=== PATIENT | male | born 1940 | race Caucasian/White ===

== ENCOUNTER 2020-11-15 11:48 | Emergency (ER) | payer MEDICARE, MEDICAID, SELFPAY ==
--- NOTE | ~2020-11-15 | CT_ITS ---
EXAMINATION: CT brain wo con INDICATION: Head injury COMPARISON: 01/25/2019 TECHNIQUE: Standard unenhanced head CT. The dose-length product (DLP) was 605.33 mGy-cm. The mA was a djusted according to patient size. Iterative reconstruction technique was employed. FINDINGS: There is no acute intraparenchymal hemorrhage. No evidence of mass lesion. No evidence of a cute infarction. There is severe periventricular and subcortical hypodensity probably related to smal l vessel ischemic disease. There is moderate prominence of the sulci and ventricles related to cerebr al atrophy. Intracranial calcified cerebral atherosclerosis is noted. There are no extra-axial collec tions. There is no mass effect or midline shift. Changes in the globes are likely from ocular lens mccarthy rgery. The visualized sinuses and mastoid air cells are well aerated. IMPRESSION: 1. No acute intracranial abnormality. 2. Age related findings. Reviewed, dictated and finalized at location A.
--- NOTE | ~2020-11-15 | CT_ITS ---
EXAMINATION: CT cervical spine wo con DATE: 11/15/2020 12:51 INDICATION: Head injury TECHNIQUE: Computed tomography (CT) of the cervical spine was performed without intravenous contrast. The dose-length product (DLP) was 309.08 mGy-cm. Automated exposure control and iterative reconstruc tion technique were employed. COMPARISON: None FINDINGS: There is no fracture. The vertebral body heights and alignment are normal. There is fusion of C2 and C3. There is severe loss of intervertebral disc space height at C4-5 and C6-7. The odontoid is intact. The prevertebral soft tissues are normal. Small degenerative osteophytes project from the anterior endplates of multiple vertebral bodies. There is mild emphysema of the visualized lung apic es. IMPRESSION: 1. Moderate cervical spondylosis without acute findings. Reviewed, dictated and finalized at location A.
--- NOTE | ~2020-11-15 | XR_ITS ---
EXAMINATION: XR chest 2V DATE: 11/15/2020 12:54 INDICATION: Chest pain after fall TECHNIQUE: AP and lateral views of the chest are obtained. COMPARISON: 01/27/2019 FINDINGS: The lungs are free of acute opacities. There is no pleural effusion or pneumothorax. The he art size is normal. There is moderate thoracic spondylosis. Median sternotomy wires are cardiac surge ry. There are healed left-sided rib fractures. Surgical clips in the right upper quadrant are likely from prior cholecystectomy. A chronic lumbar compression fracture is noted. IMPRESSION: 1. No acute cardiopulmonary abnormality. Reviewed, dictated and finalized at location A.
[2020-11-15 11:32] VITALS: BP 111/59; PULSE 85; RESP 18; TEMP 36.2; O2SAT 98
--- NOTE | 2020-11-15 12:34 | ECG_ITS ---
Measurements Intervals [place] Rate: 75 P: -6 OR: 181 QRS: -37 QRSD: 146 T: -23 QT: 416 QTc: 465 Interpretive Statements SINUS RHYTHM RIGHT BUNDLE BRANCH BLOCK BASELINE ARTIFACT- I, II, AVR, V1-V2, V4-V5 ABNORMAL ECG Electronically Signed On 11-15-2020 17:40:14 CDT by Heber Ramirez D.O.
--- NOTE | 2020-11-15 12:47 | ED.FALL ---
HPI - Fall General Chief Complaint: Fall Stated Complaint: fall, laceration Time Seen by Provider: 11/15/20 12:32 Source: EMS and RN notes reviewed History of Present Illness HPI Narrative: Patient presents after unwitnessed fall. Nurse states patient was trying to get out of his chair and struck the ground. Patient was referred to the ER for further evaluation. Patient does have baseline dementia. Related Data Home Medications Medication Instructions Recorded Confirmed Novolin 70/30 U-100 Insulin 28 unit SUBCUT HS 01/31/19 01/31/19 Novolin 70/30 U-100 Insulin 30 unit SUBCUT DAILY 01/31/19 01/31/19 bimatoprost 1 drp OPHTHALMIC (EYE) QPM 01/31/19 01/31/19 carbidopa-levodopa 1.5 tablet PO TID 01/31/19 01/31/19 divalproex 250 mg PO BID 01/31/19 01/31/19 donepezil 10 mg PO HS 01/31/19 01/31/19 glucagon HCl 1 mg IM ONCE PRN 01/31/19 01/31/19 guaifenesin 200 mg PO QID PRN 01/31/19 01/31/19 losartan 50 mg PO DAILY 01/31/19 01/31/19 memantine 10 mg PO BID 01/31/19 01/31/19 metformin 1,000 mg PO DAILY 01/31/19 01/31/19 simvastatin 80 mg PO HS 01/31/19 01/31/19 warfarin 1 mg PO QTUTHSU 01/31/19 01/31/19 warfarin 6 mg PO QTUTHSU 01/31/19 01/31/19 warfarin 8 mg PO QMWFSA 01/31/19 01/31/19 Allergies Allergy/AdvReac Type Severity Reaction Status Date / Time adhesive tape Allergy Mild Rash Verified 02/01/19 07:08 Review of Systems Review of Systems: ROS unobtainable: Yes unobtainable due to mental status PMFSH Past Medical History Medical History Chronic combined systolic and diastolic CHF (congestive heart failure) Dementia Dyslipidemia Parkinson disease Perirectal abscess (~01/24/19) Type 2 diabetes mellitus Urinary tract infection Exam Narrative: GENERAL: Well-appearing, well-nourished, and in no acute distress. HEAD: Normocephalic, atraumatic. EYES: PERRLA and EOMI. ENT: Nares clear, no rhinorrhea or epistaxis. Mucous membranes moist. NECK: Supple. No masses. No JVD CHEST: Diminished aeration no respiratory distress. No wheezes rales or rhonchi HEART: Regular rate and rhythm. No murmur heard. Normal peripheral pulses. ABDOMEN: Soft, nontender, nondistended, normal active bowel sounds. EXTREMITIES: Normal range of motion. No edema. Multiple various aged bruising no focal bony tenderness SKIN: Warm, dry, no rash. NEURO: 5 out of 5 strength in bilateral upper extremities sensation intact to light touch. Alert and oriented to self PSYCH: Normal mood and affect. Course Reevaluation(s) Reevaluation #1: Patient is resting comfortably Date: 11/15/20 Time: 15:34 Vital Signs Vital signs: Vital Signs Temperature 36.2 C L 11/15/20 11:32 Pulse Rate 85 11/15/20 11:32 Respiratory Rate 18 11/15/20 11:32 Blood Pressure 111/59 L 11/15/20 11:32 Pulse Oximetry 98 11/15/20 11:32 Temperature 36.2 C L 11/15/20 11:32 Pulse Rate 86 11/15/20 17:21 Respiratory Rate 16 11/15/20 17:21 Blood Pressure 113/57 L 11/15/20 17:21 Pulse Oximetry 100 11/15/20 17:21 MDM - Fall MDM Narrative Medical decision making narrative: H&P as above, vss, pt looks clinically well, exam without clear focal neurological deficit , labs with infected urine, img without acute process, additional labs/img considered, symptomatic relief available as needed, on reevaluation pt continues to looks clinically well. They are to be at his baseline mental status per nursing facility report. Remained clinically stable throughout his ER stay. Suspect isolated UTI, dns intracranial hemorrhage, fracture, major neurovascular compromise, severe sepsis, severe dehydration. plan to tx/monitor as op w/ pcm f/u findings/plan discussed with pt, pt agree/comfortable with plan, return precautions given Lab Data Result diagrams: 11/15/20 13:11 11/15/20 13:11 Labs: Lab Results 11/15/20 11/15/20 11/15/20 Range/Units 13:11 13:11 13:11 WBC 9.2 (4.5-10.0)
[2020-11-15] MEDS: SODIUM CHLORIDE 0.9% IV 500 ML 999 ML IV CONT (13:30)
[2020-11-15 13:32] LABS: Basophils Absolute Auto 0.1 K/mm3 (0.0-0.1); Basophils Percent Auto 0.5 % (0.2-1.2); Eosinophils Absolute Auto 0.2 K/mm3 (0-0.3); Eosinophils Percent Auto 2.6 % (0-4.4); Hematocrit 37.8 % (42.0-52.0); Hemoglobin 11.6 g/dL (14.0-18.0); Immature Granulocyte Absolute 0.04 K/mm3 (0.00-0.031); Immature Granulocyte Percent A 0.4 % (0-0.5); Lymphocytes Absolute Auto 2.47 K/mm3 (0.9-3.2); Mean Corpuscular HGB Conc 30.7 g/dl (32-36); Mean Corpuscular Hemoglobin 28.6 pg (26-34); Mean Corpuscular Volume 93.3 fl (80-100); Mean Platelet Volume 9.5 fl (7.4-10.4); Monocytes Absolute Auto 1.2 K/mm3 (0.1-0.6); Monocytes Percent Auto 13.1 % (2.6-8.5); Neutrophils Absolute Auto 5.2 K/mm3 (1.3-6.7); Neutrophils Percent Auto 56.4 % (45.5-73.1); Platelet Count Result 186 k/mm3 (150-375); Red Blood Count 4.05 M/mm3 (4.6-6.20); White Blood Count 9.2 K/mm3 (4.5-10.0)
[2020-11-15 13:42] LABS: Add Urine Microscopic? YES; Appearance Urine Turbid (Clear); Bacteria Urine Trace /hpf; Bilirubin Urine Negative (Negative); Blood Urine 3+ (Negative); Color Urine Yellow (Yellow); Glucose Urine UA Negative (Negative); Ketones Urine Negative (Negative); Leukocyte Esterase Ur 3+ LEU/UL (Negative); Nitrate Urine Negative (Negative); Protein Urine 2+ mg/dL (Negative); RBC Urine >75 /hpf (0-2); Specific Grav Ur 1.012 (1.001-1.035); Urobilinogen Urine Negative mg/dL (<2.0); WBC Urine >75 /hpf
[2020-11-15 13:42] LABS: Alanine Aminotransferase 9 U/L (4-50); Albumin Level 3.7 g/dL (3.5-5.1); Alkaline Phosphatase 64 U/L (38-126); Anion Gap 5 mmol/L (8-16); Aspartate Amino Transferase 24 U/L (17-59); Bilirubin,Total 0.5 mg/dL (0.2-1.3); Blood Urea Nitrogen 33 mg/dL (9-20); Calcium 8.8 mg/dL (8.4-10.2); Carbon Dioxide 29 mmol/L (22-30); Chloride 102 mmol/L (98-107); Estimated CRCL calculation 55 ml/min; Estimated Glomerular Filt Rate > 60; Glucose 86 mg/dL (65-110); Magnesium 1.9 mg/dL (1.6-2.3); Potassium 3.9 mmol/L (3.4-5.0); Sodium 136 mmol/L (137-145)
[2020-11-15 13:45] VITALS: BP 101/53; PULSE 85; RESP 16; O2SAT 100
[2020-11-15 13:48] LABS: Prothrombin Time 30.2 Seconds (11.1-14.7)
[2020-11-15 13:49] LABS: Partial Thromboplastin Time 54.6 SECONDS (22.3-36.8)
[2020-11-15 13:54] LABS: NT Pro B Type Natriuretic Pept 455 pg/mL (5-100); Troponin I < 0.012 ng/mL (0.000-0.034)
--- NOTE | 2020-11-15 16:45 | PC.NURSE ---
made contact with [facility] to transfer pt back to [facility] in [place]. company accepted with [facility] in route from [facility]
--- NOTE | 2020-11-15 16:45 | PC.NURSE ---
[facility] en route to transport pt back to [facility]
[2020-11-15 16:50] VITALS: BP 103/64; PULSE 82; RESP 16; O2SAT 100
[2020-11-15 17:21] VITALS: BP 113/57; PULSE 86; RESP 16; O2SAT 100
== END 2020-11-15 17:30 ==
PROVIDERS: Emergency Provider Emergency Medicine; PCP Family Medicine
DX: N39.0 Urinary tract infection, site not specified (principal); G20 Parkinson's disease; F02.80 Dementia in other diseases classified elsewhere, unspecified severity, without behavioral disturbance, psychotic disturbance, mood disturbance, and anxiety; E11.9 Type 2 diabetes mellitus without complications; I50.42 Chronic combined systolic (congestive) and diastolic (congestive) heart failure; Z79.01 Long term (current) use of anticoagulants; Z79.4 Long term (current) use of insulin; W07.XXXA Fall from chair, initial encounter
CPT/HCPCS: 36415; 70450; 71046; 72125; 80053; 81001; 83735; 83880; 84484; 85025; 85610; 85730; 87077; 87086; 87088; 93005; 96361; 96365; 99284; J0696; J7040

== ENCOUNTER 2021-07-20 09:15 | Emergency (ER) | payer OTHER, SELFPAY ==
[2021-07-20] VITALS (33 sets, daily range): BP systolic 42–85; BP diastolic 34–59; PULSE 182–197; RESP 15–43; TEMP 36.8; O2SAT 90–98
--- NOTE | 2021-07-20 09:30 | ECG_ITS ---
Measurements Intervals [place] Rate: 188 P: [place]: 0 QRS: -77 QRSD: 142 T: 106 QT: 281 QTc: 497 Interpretive Statements UNCERTAIN REGULAR WIDE COMPLEX TACHYCARDIA, PROBABLE VENTRICULAR TACHYCARDIA RIGHT BUNDLE BRANCH BLOCK [120+ ms QRS DURATION, UPRIGHT V1, 40+ ms S IN I/aVL/V4/V5/V6] ABNORMAL ECG COMPARED TO ECG 11/15/2020 13:55:08 PROBABLE VENTRICULAR TACHYCARDIA HAS REPLACED SINUS RHYTHM Electronically Signed On 07-21-2021 17:50:50 CDT by Elie Burch M.D.
--- NOTE | 2021-07-20 09:37 | PC.NURSE ---
Care coordination contacted for hospice placement.
--- NOTE | 2021-07-20 09:39 | ED.ARRPALP ---
HPI - Arrhythmia/Palpitations General Chief Complaint: Arrhythmia/Palpitations Stated Complaint: vtach, hypotensive Time Seen by Provider: 07/20/21 09:17 Source: family, EMS and old records reviewed History of Present Illness HPI narrative: Patient [facility] for [facility]. Patient is noted to not be doing well at his nursing facility EMS was called he was found to be in V. tach and hypotensive he was transferred to the ER for evaluation. Patient had a signed DNR comfort focused treatment no treatments were given in route. Patient is confused at baseline. Patient has had worsening lower extremity edema recently and there has been changes to his Lasix to help manage his symptoms Related Data Home Medications Medication Instructions Recorded Confirmed Novolin 70/30 U-100 Insulin 28 unit SUBCUT HS 01/31/19 01/31/19 Novolin 70/30 U-100 Insulin 30 unit SUBCUT DAILY 01/31/19 01/31/19 bimatoprost 1 drp OPHTHALMIC (EYE) QPM 01/31/19 01/31/19 carbidopa-levodopa 1.5 tablet PO TID 01/31/19 01/31/19 divalproex 250 mg PO BID 01/31/19 01/31/19 donepezil 10 mg PO HS 01/31/19 01/31/19 glucagon HCl 1 mg IM ONCE PRN 01/31/19 01/31/19 guaifenesin 200 mg PO QID PRN 01/31/19 01/31/19 losartan 50 mg PO DAILY 01/31/19 01/31/19 memantine 10 mg PO BID 01/31/19 01/31/19 metformin 1,000 mg PO DAILY 01/31/19 01/31/19 simvastatin 80 mg PO HS 01/31/19 01/31/19 warfarin 1 mg PO QTUTHSU 01/31/19 01/31/19 warfarin 6 mg PO QTUTHSU 01/31/19 01/31/19 warfarin 8 mg PO QMWFSA 01/31/19 01/31/19 Allergies Allergy/AdvReac Type Severity Reaction Status Date / Time adhesive tape Allergy Mild Rash Verified 07/20/21 09:31 Review of Systems Review of Systems: ROS unobtainable: Yes unobtainable due to medical condition PMFSH Past Medical History Medical History Chronic combined systolic and diastolic CHF (congestive heart failure) Dementia Dyslipidemia Parkinson disease Perirectal abscess (~01/24/19) Type 2 diabetes mellitus Urinary tract infection Social History Social History Spiritual care concerns: No Exam Narrative: GENERAL: Chronically ill in no acute distress HEAD: Normocephalic, atraumatic. EYES: PERRLA and EOMI. ENT: Nares clear, no rhinorrhea or epistaxis. Mucous membranes moist. NECK: Supple. No masses. CHEST: Clear to auscultation. No respiratory distress. No wheezes rales or rhonchi HEART: No murmur heard. Normal peripheral pulses. ABDOMEN: Soft, nontender, nondistended EXTREMITIES: Normal range of motion. No edema. SKIN: Warm, dry, no rash. NEURO: Mumbles in response to verbal stimuli PSYCH: Normal mood and affect. Course Consultations Consultation #1: Discussed patient's conditions with family as he has a signed DNR with comfort care focused treatment. Family is comfortable with how treatment for his V. tach such as defibrillation or amiodarone and comfortable with evaluation by hospice team. Family made aware that patient has a very dangerous and life-threatening heartbeat. I also discussed the patient's condition with his primary care doctor the comfort focused treatment is in line with discussions with the family. Case discussed with care coordination who will reach out to hospice for further assistance Date: 07/20/21 Time: 09:41 Consultation #2: Hospice is currently evaluating the patient. Date: 07/20/21 Time: 12:13 Vital Signs Vital signs: Vital Signs Temperature 36.8 C 07/20/21 09:14 Pulse Rate 190 H 07/20/21 09:14 Respiratory Rate 28 H 07/20/21 09:14 Blood Pressure 68/42 L 07/20/21 09:14 Pulse Oximetry 91 07/20/21 09:14 Temperature 36.8 C 07/20/21 09:14 Pulse Rate 182 H 07/20/21 14:56 Respiratory Rate 30 H 07/20/21 14:56 Blood Pressure 70/52 L 07/20/21 14:56 Pulse Oximetry 96 07/20/21 14:56 MDM - Arrhythmia/Palpitations MDM Narrative Medical decision adolfo
--- NOTE | 2021-07-20 13:26 | PCCCNOTE ---
met with patient bedside, patient is not alert nor oriented at this time. CC then met with May and niece Zenaida after discussion with MD, family wishes to proceed with inpatient hospice eval .CC sent referral to [facility] per family's request. Stephie with [facility] did bedside evaluation and patient meets GIP criteria. plan is to admit patient under [facility]. Family aware. CC will continue to follow for any needs that arise.
[2021-07-20 20:53] LABS: Glucose Point of Care 246 mg/dl (65-105)
== END 2021-07-20 15:08 | disposition hospice, inpatient (51) ==
PROVIDERS: Emergency Provider Emergency Medicine; PCP Family Medicine
DX: I47.2 Ventricular tachycardia (principal); I50.42 Chronic combined systolic (congestive) and diastolic (congestive) heart failure; E11.9 Type 2 diabetes mellitus without complications; G20 Parkinson's disease; F03.90 Unspecified dementia, unspecified severity, without behavioral disturbance, psychotic disturbance, mood disturbance, and anxiety; E78.5 Hyperlipidemia, unspecified; Z66 Do not resuscitate; Z87.440 Personal history of urinary (tract) infections; Z79.01 Long term (current) use of anticoagulants; Z79.4 Long term (current) use of insulin; Z79.84 Long term (current) use of oral hypoglycemic drugs; I45.10 Unspecified right bundle-branch block
CPT/HCPCS: 82948; 93005; 99285; A9270

== ENCOUNTER 2021-07-20 12:30 | HOS | payer OTHER, SELFPAY ==
--- NOTE | 2021-07-20 15:19 | PM.IMHP ---
H&P: HPI History of Present Illness Date/Time: 07/20/21 15:19 Chief Complaint: uncontrolled discomfort Narrative: 81 y/o resident of [facility] was found by staff to be responding differently. EMS was summoned and monitor revealed VT with rate up to 190s. As he was DNR, he was transported to ED w/o intervention. From there, hospice was summoned and due to his discomfort as manifested by moaning, he was admitted to the inpatient hospice service for symptom management. Report obtained telephonically from hospice nurse, Stephie. At baseline, he has PD with dementia and behaviors and is dependent for all ADLs and is incontinent. Review of Systems Review of Systems: ROS unobtainable: Yes unobtainable due to mental status PMFSH Past Medical History Medical History Chronic combined systolic and diastolic CHF (congestive heart failure) Dementia Dyslipidemia Parkinson disease Perirectal abscess (~01/24/19) Type 2 diabetes mellitus Urinary tract infection Social History Social History Spiritual care concerns: No Meds Home Medications and Allergies Home Medications Medication Instructions Recorded Confirmed Type Novolin 70/30 U-100 Insulin 28 unit SUBCUT HS 01/31/19 01/31/19 History Novolin 70/30 U-100 Insulin 30 unit SUBCUT DAILY 01/31/19 01/31/19 History bimatoprost 1 drp OPHTHALMIC (EYE) QPM 01/31/19 01/31/19 History carbidopa-levodopa 1.5 tablet PO TID 01/31/19 01/31/19 History divalproex 250 mg PO BID 01/31/19 01/31/19 History donepezil 10 mg PO HS 01/31/19 01/31/19 History glucagon HCl 1 mg IM ONCE PRN 01/31/19 01/31/19 History guaifenesin 200 mg PO QID PRN 01/31/19 01/31/19 History losartan 50 mg PO DAILY 01/31/19 01/31/19 History memantine 10 mg PO BID 01/31/19 01/31/19 History metformin 1,000 mg PO DAILY 01/31/19 01/31/19 History simvastatin 80 mg PO HS 01/31/19 01/31/19 History warfarin 1 mg PO QTUTHSU 01/31/19 01/31/19 History warfarin 6 mg PO QTUTHSU 01/31/19 01/31/19 History warfarin 8 mg PO QMWFSA 01/31/19 01/31/19 History furosemide 20 mg PO DAILY 30 Days #30 tablet 02/01/19 Rx metoprolol tartrate 25 mg PO Q12HR 30 Days #60 tablet 02/01/19 Rx miconazole nitrate [Aloe [place] 1 applic TOPICAL Q12HR 30 Days #1 02/01/19 Rx Antifungal (micon)] gm silver [Silver-Sept] 1 applic TOPICAL Q12HR 30 Days #1 02/01/19 Rx gm cephalexin 500 mg PO Q12H 5 Days #10 cap 11/15/20 Rx lorazepam 0.5 mg tablet 0.5 mg PO TID #90 tablet 05/11/21 Rx Allergies Allergy/AdvReac Type Severity Reaction Status Date / Time adhesive tape Allergy Mild Rash Verified 07/20/21 09:31 Exam Narrative: Frail, elderly gentelman who is tachycardic and moaning. Assessment and Plan Assessment and plan (1) Palliative care by specialist: Code(s): Z51.5 - Encounter for palliative care Status: Acute Assessment and Plan: Qualifies for inpatient hospice due to uncontrolled discomfort requiring continuous iv morphine for control Palliative regimen as ordered (2) Ventricular tachycardia: Code(s): I47.2 - Ventricular tachycardia Status: Acute (3) Dementia with behavioral disturbance: Code(s): F03.91 - Unspecified dementia with behavioral disturbance Status: Acute (4) Type 2 diabetes mellitus: Code(s): E11.9 - Type 2 diabetes mellitus without complications Status: Chronic (5) Parkinson disease: Code(s): G20 - Parkinson's disease Status: Chronic (6) Chronic combined systolic and diastolic CHF (congestive heart failure): Code(s): I50.42 - Chronic combined systolic (congestive) and diastolic (congestive) heart failure Status: Chronic Quality If No VTE Prophylaxis Answer both mechanical and pharmacologic: Reason no mechanical VTE proph: medical contraindication (comfort care only)
--- NOTE | 2021-07-20 15:19 | ADMGEN ---
This patient, Morales Corbett, was admitted to [facility] Surg Room 318-01 at 1510. Patient/family oriented to hospital policies and general routines including ID bracelet, bed and alarms, visiting hours, pain management, procedures, bathroom and other care routines, personal items, smoking policy, room service/diet, and visiting hours. Information on how to activate the Rapid Response Team has been discussed. Patient/Family are encouraged to report perceived risks to care and to ask questions if they do not understand what they are told or what they should do.
[2021-07-20] MEDS: MORPHINE SULFATE INJ (*CRX) 50 MG in SODIUM CHLORIDE 0.9% IV 95 ML IV CONT (18:20)
[2021-07-20 20:00] VITALS: PULSE 55; RESP 22; O2SAT 98
[2021-07-20 20:29] VITALS: BP 70/51; PULSE 55; RESP 22; TEMP 36.6; O2SAT 98
[2021-07-21 08:00] VITALS: BP 88/45; PULSE 82; RESP 16; TEMP 36.2; O2SAT 94
[2021-07-21] MEDS: GLYCOPYRROLATE INJ (*SP) 0.2 MG/ML VIAL 0.1 MG IV PUSH ×2 (17:13→21:41)
[2021-07-21] MEDS: MORPHINE SULFATE INJ (*CRX) 50 MG in SODIUM CHLORIDE 0.9% IV 95 ML IV CONT (17:16)
[2021-07-21] MEDS: LORazepam INJ (*CRX) 2 MG/ML VIAL 1 MG IV PUSH (21:41)
[2021-07-21 21:48] VITALS: BP 87/65; PULSE 105; RESP 18; TEMP 37.1; O2SAT 70
--- NOTE | 2021-07-22 03:58 | PC.NURSE ---
May notified of .
--- NOTE | 2021-07-22 15:58 | P.DN_ITS ---
Discharge Summary Date and Time Date of : 07/22/21 Time of : 03:50 Provider Pronounced By: Allegra Packer Probable Cause of Probable Cause of : congestive heart failure Summary Hospital Course: Admitted to inpatient hospice service for symptoms management. Medications titrated to comfort. Patient peacefully. Additional Data Confirmation of as documented by pronouncing clinician: Pupillary Reflex, Palpable Pulses, Response to Stimuli, Heart Tones and Breath Sounds Provider Requests Autopsy: No Hemodialysis Technician Notified: Yes Date [facility] Notified of : 07/22/21 Time [facility] Notified of : 04:25
== END 2021-07-22 07:40 | disposition expired | DRG 951 ==
PROVIDERS: Admitting Provider Internal Medicine; PCP Family Medicine; Visit Provider Internal Medicine
DX: Z51.5 Encounter for palliative care (principal); I50.42 Chronic combined systolic (congestive) and diastolic (congestive) heart failure; I47.2 Ventricular tachycardia; F03.91 Unspecified dementia, unspecified severity, with behavioral disturbance; F03.90 Unspecified dementia, unspecified severity, without behavioral disturbance, psychotic disturbance, mood disturbance, and anxiety; E78.5 Hyperlipidemia, unspecified; G20 Parkinson's disease; E11.9 Type 2 diabetes mellitus without complications
CPT/HCPCS: A9270; J2060; J2270